=== PATIENT | female | born 2000 | race Caucasian/White ===

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

== ENCOUNTER 2021-04-25 02:09 | Emergency (ER) | payer BC, MEDICAID ==
[~2021-04-25] VITALS: Ht 160 cm; Wt 75.7 kg
[2021-04-25 03:34] VITALS: BP 120/80
[2021-04-25 03:50] LABS: Urine Bacteria NONE SEEN /hpf (None Seen); Urine Blood 1+ /uL (Negative); Urine Mucus FEW (None Seen); Urine Specific Gravity 1.027 (1.001-1.035); Urine WBC 33 /hpf (0 - 5)
== END 2021-04-25 04:16 | disposition home or self-care (01) ==
LOC: ER 02:09
DX: N39.0 Urinary tract infection, site not specified (principal); R30.0 Dysuria; R39.11 Hesitancy of micturition; R35.0 Frequency of micturition; R39.15 Urgency of urination; M54.5 Low back pain; R31.9 Hematuria, unspecified
CPT/HCPCS: 81001

== ENCOUNTER 2022-01-05 19:54 | Emergency (ER) | payer SELFPAY ==
[~2022-01-05] VITALS: Ht 160 cm; Wt 81.6 kg
[2022-01-05 20:00] VITALS: BP 123/82
== END 2022-01-05 21:18 | disposition home or self-care (01) ==
LOC: ER 19:54
DX: S06.0X0A Concussion without loss of consciousness, initial encounter (principal); W22.8XXA Striking against or struck by other objects, initial encounter; Y93.89 Activity, other specified; Y92.9 Unspecified place or not applicable; Y99.8 Other external cause status

== ENCOUNTER 2022-01-10 11:13 | Emergency (ER) | payer SELFPAY ==
[~2022-01-10] VITALS: Ht 160 cm; Wt 79.4 kg
[2022-01-10 11:35] VITALS: BP 112/76
[2022-01-10] MEDS ORDERED: cefTRIAXone SOD 1,000 MG VL IM ONE (11:45)
[2022-01-10] MEDS ORDERED: AZIT500T66 PO (12:09)
[2022-01-10] MEDS ORDERED: IBUP600T27 PO (12:09)
== END 2022-01-10 12:22 | disposition home or self-care (01) ==
LOC: ER 11:13
DX: J03.90 Acute tonsillitis, unspecified (principal)
CPT/HCPCS: 96372; 99283; J0696

== ENCOUNTER 2022-02-25 04:32 | Emergency (ER) | payer SELFPAY ==
[~2022-02-25] VITALS: Ht 160 cm; Wt 72.7 kg
[~2022-02-25 04:32] MED LIST changes: +AZIT500T66 PO; +IBUP600T27 PO; -SODIUM CHLORIDE 0.9% 1,000 ML IV ONE
[2022-02-25 04:46] VITALS: BP 117/56
== END 2022-02-25 06:56 | disposition left against medical advice (07) ==
LOC: ER 04:32
DX: T78.40XA Allergy, unspecified, initial encounter (principal); Z53.21 Procedure and treatment not carried out due to patient leaving prior to being seen by health care provider; X58.XXXA Exposure to other specified factors, initial encounter

== ENCOUNTER 2022-09-29 23:05 | Emergency (ER) | payer BC, MEDICAID ==
[~2022-09-29] VITALS: Ht 160 cm; Wt 81.8 kg
[2022-09-30 00:20] LABS: Basophils # (auto) 0.1 10 ^3/uL (0-0.2); Basophils % (auto) 0.4 % (0.0-2.0); Eosinophils # (auto) 0.1 10 ^3/uL (0-0.8); Eosinophils % (auto) 0.7 % (0.0-7.0); Hematocrit 42.3 % (36.0-46.0); Hemoglobin 14.6 g/dL (12.2-16.2); Lymphocytes # (auto) 3.2 10 ^3/uL (0.4-5.4); Lymphocytes % (auto) 22.1 % (10.0-50.0); Mean Corpuscular Hgb Conc. 34.5 g/dL (32.0-36.0); Mean Corpuscular Volume 86.9 fL (80.0-100.0); Monocytes # (auto) 0.7 10 ^3/uL (0-1.3); Neutrophils # (auto) 10.3 10 ^3/uL (1.6-8.6); Neutrophils % (auto) 71.8 % (37.0-80.0); Red Blood Cells 4.86 10^6/uL (4.0-5.20); Red Cell Distribution Width 13.2 % (11.8-14.3); White Blood Cell 14.4 10^3/uL (4.4-10.8)
[2022-09-30 00:38] LABS: Albumin 4.4 g/dL (3.4-5.0); Calcium 9.4 mg/dL (8.5-10.1)
[2022-09-30 00:41] LABS: BUN/Creatinine Ratio 18.5
[2022-09-30 00:43] LABS: Bilirubin, Total 0.3 mg/dL (0.2-1.0); Total Protein 8.8 g/dL (6.4-8.2)
[2022-09-30 00:54] LABS: Urine Blood 2+ /uL (Negative); Urine Specific Gravity 1.026 (1.001-1.035)
[2022-09-30 03:11] VITALS: BP 104/73
== END 2022-09-30 03:13 | disposition home or self-care (01) ==
LOC: ER 23:05
DX: N39.0 Urinary tract infection, site not specified (principal); I88.0 Nonspecific mesenteric lymphadenitis; N83.201 Unspecified ovarian cyst, right side; N83.202 Unspecified ovarian cyst, left side
CPT/HCPCS: 36415; 71045; 74176; 80053; 81003; 83690; 85025

== ENCOUNTER 2023-02-22 11:09 | Emergency (ER) | payer BC ==
[~2023-02-22] VITALS: Ht 160 cm; Wt 88.3 kg
[~2023-02-22 11:09] MED LIST changes: +IBUP-1454 PO; -IBUP600T27 PO
[2023-02-22 11:48] LABS: Basophils # (auto) 0.1 10 ^3/uL (0-0.2); Basophils % (auto) 0.8 % (0.0-2.0); Eosinophils # (auto) 0.1 10 ^3/uL (0-0.8); Eosinophils % (auto) 1.3 % (0.0-7.0); Hematocrit 40.8 % (36.0-46.0); Hemoglobin 13.6 g/dL (12.2-16.2); Lymphocytes # (auto) 3.4 10 ^3/uL (0.4-5.4); Lymphocytes % (auto) 35.3 % (10.0-50.0); Mean Corpuscular Hemoglobin 29.2 pg (28.0-32.0); Mean Corpuscular Hgb Conc. 33.4 g/dL (32.0-36.0); Mean Corpuscular Volume 87.3 fL (80.0-100.0); Monocytes # (auto) 0.6 10 ^3/uL (0-1.3); Monocytes % (auto) 5.8 % (0.0-12.0); Neutrophils # (auto) 5.5 10 ^3/uL (1.6-8.6); Neutrophils % (auto) 56.8 % (37.0-80.0); Nucleated Red Blood Cells % 0.1 %; Red Blood Cells 4.68 10^6/uL (4.0-5.20); Red Cell Distribution Width 13.2 % (11.8-14.3); White Blood Cell 9.7 10^3/uL (4.4-10.8)
[2023-02-22 11:52] LABS: Urine Bacteria FEW /hpf (None Seen); Urine Blood 2+ /uL (Negative); Urine WBC 4 /hpf (0 - 5)
[2023-02-22 12:07] LABS: Albumin 3.6 g/dL (3.4-5.0); Calcium 8.7 mg/dL (8.5-10.1); Potassium 4.2 mmol/L (3.5-5.1)
[2023-02-22 12:11] LABS: BUN/Creatinine Ratio 13.1 (10.0-20.0); Bilirubin, Total 0.5 mg/dL (0.2-1.0)
[2023-02-22] MEDS ORDERED: IBUP-1453 PO (12:42)
[2023-02-22] MEDS ORDERED: NITR-87 PO (13:05)
[2023-02-22 13:21] VITALS: BP 135/84
== END 2023-02-22 13:13 | disposition home or self-care (01) ==
LOC: ER 11:09
DX: N39.0 Urinary tract infection, site not specified (principal); R10.31 Right lower quadrant pain
CPT/HCPCS: 36415; 74176; 80053; 81001; 81025; 83690; 85025

== ENCOUNTER 2023-11-24 00:30 | Emergency (ER) | payer BC ==
[~2023-11-24] VITALS: Ht 160 cm; Wt 87.3 kg
[~2023-11-24 00:30] MED LIST changes: +IBUP-1453 PO; +NITR-87 PO
[2023-11-24 01:36] LABS: Basophils # (auto) 0.1 10 ^3/uL (0-0.2); Eosinophils # (auto) 0.1 10 ^3/uL (0-0.8); Eosinophils % (auto) 0.8 % (0.0-7.0); Hematocrit 40.7 % (36.0-46.0); Hemoglobin 13.8 g/dL (12.2-16.2); Lymphocytes # (auto) 4.1 10 ^3/uL (0.4-5.4); Mean Corpuscular Hemoglobin 29.4 pg (28.0-32.0); Mean Corpuscular Volume 86.5 fL (80.0-100.0); Monocytes # (auto) 0.7 10 ^3/uL (0-1.3); Neutrophils # (auto) 6.5 10 ^3/uL (1.6-8.6); Neutrophils % (auto) 56.2 % (37.0-80.0); Nucleated Red Blood Cells % 0.1 %; Red Cell Distribution Width 13.4 % (11.8-14.3); White Blood Cell 11.5 10^3/uL (4.4-10.8)
[2023-11-24 01:51] LABS: Alanine Aminotransferase 23 U/L (7-40); Albumin 4.6 g/dL (3.2-4.8); Alkaline Phosphatase 68 U/L (46-116); Anion Gap 6 (5-15); Aspartate Aminotransferase 16 U/L (13-40); BUN/Creatinine Ratio 15.3 (10.0-20.0); Blood Urea Nitrogen 13 mg/dL (9-23); Calcium 9.7 mg/dL (8.7-10.4); Carbon Dioxide 27 mmol/L (20-30); Chloride 104 mmol/L (98-107); Glucose 96 mg/dL (74-106); Potassium 3.3 mmol/L (3.5-5.1); Sodium 137 mmol/L (136-145)
[2023-11-24 01:52] LABS: Bilirubin, Total 0.4 mg/dL (0.2-1.0); Total Protein 8.1 g/dL (5.7-8.2)
[2023-11-24 01:54] LABS: INR 1.09 (0.9-1.15); Partial Thromboplastin Time 31.1 SEC (24.5-34.5); Prothrombin Time 11.4 sec (9.3-11.8)
[2023-11-24] MEDS ORDERED: PANT40T PO (04:07)
[2023-11-24] MEDS: POTASSIUM CHL 20 Meq TABLET PO ONE (05:56)
[2023-11-24 05:59] VITALS: BP 129/74; PULSE 83; RESP 16; TEMP 98.2; O2SAT 97
== END 2023-11-24 06:02 | disposition home or self-care (01) ==
LOC: ER 00:30
DX: K62.5 Hemorrhage of anus and rectum (principal); Z98.890 Other specified postprocedural states; Z79.899 Other long term (current) drug therapy
CPT/HCPCS: 36415; 74176; 80053; 85025; 85610; 85730

== ENCOUNTER 2024-02-09 00:47 | Inpatient (IN) | payer BC ==
[~2024-02-09] VITALS: Ht 160 cm; Wt 88.6 kg
[2024-02-09] VITALS (7 sets, daily range): BP systolic 102–114; BP diastolic 44–54; PULSE 66–80; RESP 16–27; TEMP 97.6–98.1; O2SAT 95–98
[~2024-02-09 00:47] MED LIST changes: +PANT40T PO
[2024-02-09 03:18] LABS: Basophils # (auto) 0.1 10 ^3/uL (0-0.2); Basophils % (auto) 0.7 % (0.0-2.0); Eosinophils # (auto) 0.1 10 ^3/uL (0-0.8); Eosinophils % (auto) 0.8 % (0.0-7.0); Hematocrit 41.1 % (36.0-46.0); Hemoglobin 13.9 g/dL (12.2-16.2); Lymphocytes # (auto) 4.6 10 ^3/uL (0.4-5.4); Mean Corpuscular Hemoglobin 29.4 pg (28.0-32.0); Mean Corpuscular Hgb Conc. 33.8 g/dL (32.0-36.0); Monocytes # (auto) 0.7 10 ^3/uL (0-1.3); Monocytes % (auto) 5.6 % (0.0-12.0); Neutrophils # (auto) 7.9 10 ^3/uL (1.6-8.6); Neutrophils % (auto) 58.9 % (37.0-80.0); Red Blood Cells 4.72 10^6/uL (4.0-5.20); Red Cell Distribution Width 13.5 % (11.8-14.3); White Blood Cell 13.5 10^3/uL (4.4-10.8)
[2024-02-09 03:36] LABS: INR 1.03 (0.9-1.15); Partial Thromboplastin Time 28.5 SEC (24.5-34.5); Prothrombin Time 10.9 sec (9.3-11.8)
[2024-02-09 03:37] LABS: Alanine Aminotransferase 19 U/L (7-40); Albumin 4.8 g/dL (3.2-4.8); Alkaline Phosphatase 86 U/L (46-116); Anion Gap 5 (5-15); Aspartate Aminotransferase 12 U/L (13-40); BUN/Creatinine Ratio 12.1 (10.0-20.0); Bilirubin, Total 0.3 mg/dL (0.2-1.0); Blood Urea Nitrogen 8 mg/dL (9-23); Calcium 10.1 mg/dL (8.7-10.4); Carbon Dioxide 26 mmol/L (20-30); Chloride 108 mmol/L (98-107); Glucose 100 mg/dL (74-106); Potassium 4.2 mmol/L (3.5-5.1); Sodium 139 mmol/L (136-145)
[2024-02-09 03:38] LABS: Total Protein 8.1 g/dL (5.7-8.2)
[2024-02-09] MEDS: SODIUM CHLORIDE 0.9% 1,000 ML IV ONE (04:14)
[2024-02-09] MEDS: PANTOPRAZOLE 40 MG/10 ML VIAL INJ IV ONE (04:14)
[2024-02-09] MEDS ORDERED: ACETAMINOPHEN 325 MG TAB PO PRN (06:30)
[2024-02-09] MEDS ORDERED: ONDANSETRON HCL 4 MG/2 ML VIAL IV PRN (06:30)
[2024-02-09] MEDS ORDERED: HYDROcodone-ACET 5/325MG TAB PO PRN (06:30)
[2024-02-09] MEDS: PANTOPRAZOLE 40 MG/10 ML VIAL INJ IV SCH (10:44)
[2024-02-09 11:47] LABS: Urine Bacteria None Seen /hpf (None Seen)
[2024-02-09 11:57] LABS: Urine Blood 1+ /uL (Negative); Urine Clarity Clear (Clear); Urine Color Light-Yellow (Yellow); Urine Mucus FEW (None Seen); Urine Protein, UAD Negative (Negative); Urine Specific Gravity 1.023 (1.001-1.035); Urine Urobilinogen Normal (Negative); Urine WBC 1 /hpf (0 - 5); Urine pH 5.5 (5.0-9.0)
[2024-02-10 01:00] VITALS: BP 99/50; PULSE 71; RESP 17; TEMP 98.4; O2SAT 98
[2024-02-10 05:00] VITALS: BP 97/48; PULSE 77; RESP 17; TEMP 97.4; O2SAT 97
[2024-02-10 06:01] LABS: Basophils # (auto) 0.1 10 ^3/uL (0-0.2); Basophils % (auto) 0.5 % (0.0-2.0); Eosinophils # (auto) 0.1 10 ^3/uL (0-0.8); Eosinophils % (auto) 1.4 % (0.0-7.0); Hematocrit 38.6 % (36.0-46.0); Hemoglobin 13.3 g/dL (12.2-16.2); Lymphocytes # (auto) 3.9 10 ^3/uL (0.4-5.4); Lymphocytes % (auto) 38.6 % (10.0-50.0); Mean Corpuscular Hemoglobin 29.8 pg (28.0-32.0); Mean Corpuscular Hgb Conc. 34.4 g/dL (32.0-36.0); Mean Corpuscular Volume 86.7 fL (80.0-100.0); Monocytes # (auto) 0.6 10 ^3/uL (0-1.3); Neutrophils # (auto) 5.4 10 ^3/uL (1.6-8.6); Neutrophils % (auto) 53.5 % (37.0-80.0); Nucleated Red Blood Cells % 0.1 %; Red Blood Cells 4.45 10^6/uL (4.0-5.20); Red Cell Distribution Width 13.3 % (11.8-14.3); White Blood Cell 10.1 10^3/uL (4.4-10.8)
[2024-02-10 06:08] LABS: Chloride 106 mmol/L (98-107); Potassium 3.3 mmol/L (3.5-5.1); Sodium 139 mmol/L (136-145)
[2024-02-10 06:09] LABS: Anion Gap 7 (5-15); Calcium 9.7 mg/dL (8.7-10.4); Carbon Dioxide 26 mmol/L (20-30)
[2024-02-10 06:14] LABS: BUN/Creatinine Ratio 8.9 (10.0-20.0); Blood Urea Nitrogen 5 mg/dL (9-23); Glucose 83 mg/dL (74-106)
[2024-02-10 08:40] VITALS: BP 108/56; PULSE 86; RESP 16; TEMP 98.2; O2SAT 100
[2024-02-10] MEDS: POTASSIUM CHL 20 Meq TABLET PO ONE (12:02)
== END 2024-02-10 12:16 | disposition home or self-care (01) | DRG 379 ==
LOC: ER 00:47 → OVERFLOW 06:25 → CENTRAL 07:59
PROVIDERS: ADMIT Nurse Practitioner; ATTEND Family Medicine
DX: K92.2 Gastrointestinal hemorrhage, unspecified (principal); Z79.899 Other long term (current) drug therapy
CPT/HCPCS: 36415; 74176; 80048; 80053; 81001; 82270; 85025; 85610; 85730; G0378